=== PATIENT | female | born 1945 | race American Indian/Alaskan Native ===

== ENCOUNTER 2016-11-11 15:46 | Outpatient (CLI) | payer MEDICARE ==
--- NOTE | 2016-11-12 08:13 | Mammography Report ---
BONE DEXA:11/11/16 15:46:00 CLINICAL: Postmenopausal. COMPARISON: 11/09/14 TECHNIQUE: Two site bone DEXA performed on an Hologic scanner. FINDINGS: The average BMD of the lumbar spine L1-L3 is 1.388g/cm squared with a T-score of +2.5 and a Z-score of +4.7. The L4 vertebra was excluded as an outlier. This compares to 1.455g/cm squared on the last exam and represents a -4.6% change from the previous baseline. The average BMD of the left hip is 0.957g/cm squared with a T-score of -0.5 and a Z-score of +0.6. This compares to 0.958g/cm squared on the last exam and represents a -0.1% change from the previous baseline. IMPRESSION: 1. WHO classification: Normal with average fracture risk based on both spine and left hip measurements. 2. A modest decline in spine BMD and a slight decline in left hip BMD compared to prior exam. RECOMMENDATION: Clinical correlation and routine screening. DEFINITIONS: BMD = Bone Mineral Density T-score = BMD related to mean peak bone mass of young adult (mean expressed in Standard Deviation) Z-score = Age matched BMD expressed in SD World Health Organization (WHO) Diagnostic Criteria Normal T-score > -1 SD Osteopenia T-score between -1 and -2.4 SD Osteoporosis T-score -2.5 SD or below NOTE: BMD is not the only risk factor for fracture; also consider factors such as the patient's age, risk of falling, previous osteoporotic fracture, family history of osteoporotic fractures, current smoker, and low body weight. Z-scores are not calculated if >80 years of age.
== END 2016-11-11 15:47 | disposition home or self-care (01) ==
LOC: SPVWC 15:46
PROVIDERS: ATTEND Family Medicine
DX: Z13.820 Encounter for screening for osteoporosis (principal); Z78.0 Asymptomatic menopausal state
CPT/HCPCS: 77080

== ENCOUNTER 2019-06-22 14:07 | Outpatient (CLI) | payer MEDICARE ==
--- NOTE | 2019-06-26 16:25 | Mammography Report ---
BONE DEXA CLINICAL: Postmenopausal. COMPARISON: 11/11/2016 and 11/09/2014 TECHNIQUE: 2 site bone DEXA performed on an Hologic scanner. FINDINGS: The average BMD of the lumbar spine L1-L3 is 1.437g/cm squared with a T score of +2.9 and a Z score o f +5.3. This compares to 1.388g/cm squared on the last exam and represents a +3.5 % change from the l ast study and a -1.2% change from baseline. The L4 vertebral body was excluded as an outlier because of endplate sclerosis at L3-4. The average BMD of the left hip is 0.923 g/cm squared with a T score of -0.7and a Z score of +0.5. Th is compares to 0.957 g/cm squared on the last exam and represents a -3.6 % change from the last study and a -3.7% change from baseline. IMPRESSION: 1. WHO classification: Normal with average fracture risk based on both spine and left hip measurement s. 2. A modest improvement in spine BMD and a modest decline in left hip BMD compared to the last exam. RECOMMENDATION: Clinical correlation and routine screening. Definitions: BMD equal bone mineral density T score = BMD related to peak bone mass of young adult ([place] expressed an standard deviation) Z score = age-matched BMD expressed in SD World health organization (WHO) diagnostic criteria Normal T score greater than equal to 1 standard deviation Osteopenia T score between -1 and -2.4 standard deviation Osteoporosis T score -2.5 standard deviation or below. Note: BMD is not the only risk factor for fracture; also consider factors such as the patient's age, risk of falling, previous osteoporotic fracture, family history of osteoporotic fractures, current sm oker and low body weight. Z scores are not calculated if greater than 80 years of age. Signer Name: Chiki Sanchez MD Signed: 06/26/2019 4:21 PM Workstation Name: [id number]
== END 2019-06-22 14:08 | disposition home or self-care (01) ==
LOC: SPVWC 14:07
PROVIDERS: ATTEND Internal Medicine Hematology & Oncology
DX: N95.9 Unspecified menopausal and perimenopausal disorder (principal); Z79.811 Long term (current) use of aromatase inhibitors
CPT/HCPCS: 77080

== ENCOUNTER 2021-12-10 11:22 | Outpatient (CLI) | payer MEDICARE ==
--- NOTE | 2021-12-10 13:21 | Mammography Report ---
DEXA BONE DENSITY SCAN INDICATION / CLINICAL INFORMATION: OTHER SPECIFIED DISORDERS OF BONE DENSITY, MULTIPLE SITES. 76 years Female COMPARISON: 06/22/2019 LUMBAR SPINE, L1-L3: - Bone mineral density (BMD) = 1.323 g/cm2. - T-score = 1.9 - Change (%) since most recent prior (if available): 7.9% decrease LEFT HIP, TOTAL : - Bone mineral density (BMD) = 0.920 g/cm2. - T-score = -0.7 - Change (%) since most recent prior (if available): 0.3% decrease IMPRESSION: 1. WHO Classification: Normal bone density. Fracture Risk: Not Increased. Note: 10-Year Fracture Risk (FRAX) not reported. This DEXA unit lacks FRAX functionality. BMD Reporting Guidelines (ISCD, 2015) BMD Reporting in Postmenopausal Women and in Men Age 50 and Older - T-scores are preferred. - The WHO densitometric classification is applicable. BMD Reporting in Females Prior to Menopause and in Males Younger Than Age 50 - Z-scores, not T-scores, are preferred. This is particularly important in children. - A Z-score of -2.0 or lower is defined as below the expected range for age, and a Z-score above -2.0 is within the expected range for age. - Osteoporosis cannot be diagnosed in men under age 50 on the basis of BMD alone. - The WHO diagnostic criteria may be applied to women in the menopausal transition. http://www.iscd.org/official-positions/4510-aypl-cjdoqlxb-positions-adult/ Signer Name: Winston Putnam MD Signed: 12/10/2021 1:16 PM Workstation Name: [id number]
== END 2021-12-10 11:23 | disposition home or self-care (01) ==
LOC: SPVWC 11:22
PROVIDERS: ATTEND Internal Medicine Hematology & Oncology
DX: M85.89 Other specified disorders of bone density and structure, multiple sites (principal)
CPT/HCPCS: 77080